=== PATIENT | male | born 1945 | race Caucasian/White ===

== ENCOUNTER → 2023-10-18 13:57 | Outpatient (CLI) | payer MEDICARE, OTHER, SELFPAY ==
[2023-10-18 14:46] LABS: Add Manual Diff / Slide Review NO; Basophils Absolute Auto 0 /uL (0-100); Basophils Percent Auto 0.2 % (0-2); Eosinophils Absolute Auto 100 /uL (0-450); Eosinophils Percent Auto 1.3 % (2-4); Hematocrit 39.6 % (41-53); Hemoglobin 13.5 g/dL (13.5-17.5); Lymphocytes Absolute Auto 2000 /uL (1100-4500); Mean Corpuscular HGB Conc 34.2 % (30-36); Mean Corpuscular Hemoglobin 34.1 PG (26-34); Mean Corpuscular Volume 99.8 fL (80-100); Monocytes Absolute Auto 500 /uL (0-900); Neutrophils Absolute Auto 2400 /uL (1500-7000); Neutrophils Percent Auto 48.5 % (50-75); Platelet Count 196 X10^3/uL (150-400); Red Blood Cell Count 3.97 X10^6/uL (4.5-5.9); Red Cell Distribution Width 13.7 % (11.6-14.8)
[2023-10-18 15:20] LABS: Alanine Aminotransferase 14 IU/L (<50); Albumin Globulin Ratio 1.7 (1.0-2.8); Alkaline Phosphatase 88 U/L (38-126); Aspartate Aminotransferase 21 IU/L (17-59); BUN Creatinine Ratio 20.8 (6-22); Bilirubin Total 0.5 mg/dL (0.2-1.3); Blood Urea Nitrogen 26 mg/dL (9-20); Carbon Dioxide 29 mmol/L (22-32); Chloride 108 mmol/L (98-107); Cholesterol 149 mg/dL (140-199); Estimated Glomerular Filt Rate 58 mL/min (>60); Globulin 2.4 g/dL (1.7-4.1); Glucose 85 mg/dL (80-110); HDL Cholesterol 44 mg/dL (40-60); HEMOLYSIS < 15 (0-50); LDL Cholesterol Calculated 72 mg/dL (<100); Potassium 4.6 mmol/L (3.4-5.1); Sodium 140 mmol/L (137-145); Total Protein 6.4 g/dL (6.3-8.2); Triglycerides 165 mg/dL (35-150)
[2023-10-18 15:46] LABS: Prostate Specific Antigen Scrn < 0.064 ng/mL (0.1-4.0)
== END ==
PROVIDERS: PCP Family Medicine; Referring Provider Family Medicine; Visit Provider Family Medicine
DX: Z12.5 Encounter for screening for malignant neoplasm of prostate (principal); I10 Essential (primary) hypertension; E78.5 Hyperlipidemia, unspecified; Z85.46 Personal history of malignant neoplasm of prostate
CPT/HCPCS: 36415; 80053; 80061; 85025; G0103

== ENCOUNTER 2024-07-05 17:37 | Emergency (ER) | payer MEDICARE, OTHER, SELFPAY ==
[2024-07-05 17:41] VITALS: BP 165/91; PULSE 65; RESP 16; TEMP 36.6; O2SAT 97; BMI 28.8
--- NOTE | 2024-07-05 17:45 | DI.US.S_ITS ---
PROCEDURE: US PERIPH VENOUS LOW EXTREM RT INDICATIONS: right leg pain and swelling in calf TECHNIQUE: Real-time imaging, as well as color and pulse Doppler interrogation, were performed of the lower extremity deep veins from the inguinal ligament to the popliteal fossa, with documentation of the visualized calf veins. COMPARISON: None. FINDINGS: The common femoral, femoral, popliteal, and the visualized calf veins are normally compressible, and free of intraluminal thrombus. Color and pulse Doppler demonstrate normal phasic intraluminal flow. There is normal augmentation response to distal compression maneuver. IMPRESSION: No findings of lower extremity deep venous thrombosis. Dictated by: Justin Moreno M.D. on 07/05/2024 at 19:19 Approved by: Justin Moreno M.D. on 07/05/2024 at 19:20
--- NOTE | 2024-07-05 18:20 | ED.EXTPRO ---
HPI - Extremity Problem <MAURI Landrum - Last Filed: 07/05/24 19:25> General Chief complaint: Extremity Problem,Nontraumatic Stated complaint: sent by [facility] px, swelling rt leg Time Seen by Provider: 07/05/24 17:48 Source: patient and family Mode of arrival: Ambulatory History of Present Illness HPI Narrative: 79-year-old male, with history of [place], was brought to the emergency department with complaints of right calf swelling and pain of unknown origin. Patient went for a walk earlier today and when he got home, noticed that he was having swelling and pain of his right calf. No history of blood clots. Related Data Previous Rx's Medication Instructions Recorded atorvastatin 40 mg tablet 40 mg PO BEDTIME #90 tabs 04/13/24 donepezil 10 mg tablet 10 mg PO BEDTIME #90 tabs 04/13/24 losartan 25 mg tablet 25 mg PO DAILY #90 tabs 04/13/24 quetiapine 25 mg tablet 25 mg PO BEDTIME #90 tabs 04/13/24 tamsulosin 0.4 mg capsule 0.4 mg PO BEDTIME #90 caps 04/13/24 Allergies Allergy/AdvReac Type Severity Reaction Status Date / Time No Known Drug Allergies Allergy Verified 07/05/24 17:29 Review of Systems <MAURI Landrum - Last Filed: 07/05/24 19:25> Review of Systems Narrative: Narrative: See HPI. GENERAL: Denies chills, fatigue, fever, sweats. HEENT: Denies sinus pain, ear pain, sore throat, difficulty swallowing, dizziness. RESPIRATORY: Denies dyspnea, cough, wheezing, sputum. CARDIOVASCULAR: Denies chest pain, palpitations, edema. MSK: Denies weakness, joint pain, or bony pain. Endorses pain and swelling of right calf. SKIN: Denies rash, skin lesions, or pruritis. NEUROLOGIC: Denies weakness, dizziness, headache, numbness, confusion. 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 HEAD: Atraumatic. Normocephalic. EYES: Pupils equal round and reactive. Extraocular motions intact. No scleral icterus, injection or drainage. ENT: Nose without bleeding, purulent drainage. Airway patent. NECK: Trachea midline. No JVD. CARDIOVASCULAR: Regular rate and rhythm without murmurs, peripheral pulses intact, cap refill <2 sec. RESPIRATORY: Breath sounds equal and clear bilaterally. No wheezes, rales, or rhonchi. No cough. No increased respiratory effort. No accessory muscle use. MSK: Moves all extremities. Normal range of motion, no clubbing or edema. Neurovascularly intact. Measurements of of right calf was 39.5 cm, right ankle 27.5 cm. Measurements of left calf was 36.5 cm and left ankle 26.5 cm. Positive lower extremity edema. Pain with palpation upper calf. NEURO: A&O x 3. SKIN: Warm, dry, no rashes or lesions noted. Initial Vital Signs Initial Vital Signs: Vital Signs Temperature 98 F 07/05/24 17:41 Pulse Rate 65 07/05/24 17:41 Respiratory Rate 16 07/05/24 17:41 Blood Pressure 165/91 H 07/05/24 17:41 Pulse Oximetry 97 07/05/24 17:41 Oxygen Delivery Method Room Air 07/05/24 17:41 Reviewed <David Thayer MD - Last Filed: 07/05/24 21:44> Initial Vital Signs Initial Vital Signs: Vital Signs Temperature 98 F 07/05/24 17:41 Pulse Rate 65 07/05/24 17:41 Respiratory Rate 16 07/05/24 17:41 Blood Pressure 165/91 H 07/05/24 17:41 Pulse Oximetry 97 07/05/24 17:41 Oxygen Delivery Method Room Air 07/05/24 17:41 Scores <MAURI Landrum - Last Filed: 07/05/24 19:25> Xu Criteria for DVT Active Cancer (Treatment within 6 months): No Bedridden recently >3 days or major surgery within 4 weeks: No Calf Swelling >3cm compared to other leg: Yes Collateral (nonvericose) superficial veins present: No Entire leg swollen: No Localized tenderness along the deep vein system: Yes Pitting edema, confined to symtomatic leg: No Paralysis, paresis, or recent plaster immobilization of ext: No Previously documented DVT: No Alternative dx to DVT as likely or more likely: No Xu criteria for DVT: 2 <David Thayer MD - Last Filed: 07/05/24 21:44> Xu Criteria for DVT Xu criteria for DVT: 2 Course <MAURI Landrum - Last Filed: 07/05/24 19:25> Orders Ordered: ED Orders 07/05/24 17:45 US periph venous low extrem rt Stat Vital Signs Vital signs: Vital Signs - 8 hr 07/05/24 17:41 07/05/24 19:30 Temperature 98 F Pulse Rate 65 59 L Respiratory Rate 16 15 Blood Pressure 165/91 H 171/80 H Pulse Oximetry 97 98 Oxygen Delivery Method Room Air Room Air <David Thayer MD - Last Filed: 07/05/24 21:44> Orders Ordered: ED Orders 07/05/24 17:45 US periph venous low extrem rt Stat Vital Signs Vital signs: Vital Signs - 8 hr 07/05/24 17:41 07/05/24 19:30 Temperature 98 F Pulse Rate 65 59 L Respiratory Rate 16 15 Blood Pressure 165/91 H 171/80 H Pulse Oximetry 97 98 Oxygen Delivery Method Room Air Room Air MDM - Extremity (Nontraumatic) <MAURI Landrum - Last Filed: 07/05/24 19:25> Differential Diagnosis Differential diagnosis: Likely lower extremity edema and deep vein thrombosis of lower extremity Imaging Data US - DVT: Radiologist's Impression: [address] [address] Ultrasound Report Signed Patient: Sunday Nazario MR#: [id number] : 1945 Acct:[id number] Age/Sex: 79 / M Date of Service: 07/05/24 Loc: ED Accession Number: [id number] Procedure: periph venous low extrem rt Ordering Provider: Kelsi Zhou MD PROCEDURE: PERIPH VENOUS LOW EXTREM RT INDICATIONS: right leg pain and swelling in calf TECHNIQUE: Real-time imaging, as well as color and pulse Doppler interrogation, were performed of the lower extremity deep veins from the inguinal ligament to the popliteal fossa, with documentation of the visualized calf veins. COMPARISON: None. FINDINGS: The common femoral, femoral, popliteal, and the visualized calf veins are normally compressible, and free of intraluminal thrombus. Color and pulse Doppler demonstrate normal phasic intraluminal flow. There is normal augmentation response to distal compression maneuver. IMPRESSION: No findings of lower extremity deep venous thrombosis. Dictated by: Justin Moreno M.D. on 07/05/2024 at 19:19 Approved by: Justin Moreno M.D. on 07/05/2024 at 19:20 MDM Narrative Medical decision making narrative: 79-year-old male with right calf swelling since this afternoon. Assessment and HPI indicated the need for an ultrasound to rule out a DVT. Wells criteria for DVT -2. No complaints of chest pain, shortness of breath, etc.. Ultrasound revealed patient is negative for a DVT. Recommended right lower extremity elevation to decrease swelling. Strongly recommended patient follow up with family doctor to ensure symptoms are improving. Discussed plan care and return precautions with patient, verbalized understanding and was agreeable to course of action. Informed patient that if radiologist's report is different from what we discussed, ED staff would contact him. Discharge Plan Departure Patient Disposition: Home Clinical Impression: Lower extremity edema Instructions: DI for Peripheral Edema-Unilateral Activity Restrictions/Additional Instructions: *You have been diagnosed with right lower extremity swelling or edema. The ultrasound revealed no blood clot. Supportive care includes elevation your right leg, especially at nighttime, to help reduce the swelling. Please follow-up with your family doctor to ensure symptoms are improving. For any worsening symptoms that include intolerable pain, difficulty breathing, chest pain, etc. please return to the emergency department. *What to do: *Please continue to take your regular medications as directed. [ ] New medication prescriptions sent to your pharmacy: [ ] [ ] New medication written as a paper prescription [x ] No new medications given *Please follow up with your primary care provider in 2-3 days, call for an appointment. Let them know you were seen in the Emergency Department and that we ask that you be seen in follow up. We will electronically transmit a record of today's note if your PCP is in our system *If you do not have a primary care provider please contact the [facility] Resource line at [phone]. They will ask some questions about your medical history and help get you set up with a doctor in the community. ? Return to ER if you should have any new, worsening or concerning symptoms, such as worsening pain, severe headache, confusion, chest pain, difficulty breathing, fever greater than 101 F, shaking chills, persistent vomiting to the point that you cannot drink fluids, or other new or worsening symptoms. Prescriptions: No Action quetiapine 25 mg tablet 25 mg PO BEDTIME Qty: 90 3RF atorvastatin 40 mg tablet 40 mg PO BEDTIME Qty: 90 3RF donepezil 10 mg tablet 10 mg PO BEDTIME Qty: 90 3RF Rx Instructions: increase to 10 mg losartan 25 mg tablet 25 mg PO DAILY Qty: 90 3RF tamsulosin 0.4 mg capsule 0.4 mg PO BEDTIME Qty: 90 3RF Referrals: Daquan Spain, [Primary Care Provider] - Stand Alone Forms: Patient Portal/API/Survey ED Sign-out <David Thayer MD - Last Filed: 07/05/24 21:44> Cosign ED Attending Robbie Attestation: I was immediately available in the department for consultation. This documentation has been reviewed and I agree with assessment and plan. Supervised by David Thayer MD
[2024-07-05 19:30] VITALS: BP 171/80; PULSE 59; RESP 15; O2SAT 98
== END 2024-07-05 19:33 | disposition home or self-care (01) ==
PROVIDERS: Emergency Provider Registered Nurse; PCP Family Medicine
DX: R60.0 Localized edema (principal); I25.2 Old myocardial infarction
CPT/HCPCS: 93971; 99281; 99283